=== PATIENT | female | born 1935 | race Caucasian/White ===

== ENCOUNTER 2017-02-27 13:25 | Inpatient (IN) | payer MEDICARE, OTHER ==
[~2017-02-27] VITALS: Ht 154.9 cm; Wt 85.0 kg
[~2017-02-27 13:25] MED LIST: BACTROBAN CREAM15 GM TP; BACTROBAN OINT.22 GM TP; BISACODYL10 MG PR; CIPRO DPS500 MG PO; CLEOCIN HCL300 MG PO; COREG12.5 MG PO; COREG6.25 MG PO; DULCOLAX-DPS5 MG PO; DUONEB DPS3 ML IH; FLEXERIL DPS5 MG PO; HIBICLENS 4% TP; HYDROCODON-ACE1 EAC4 PO; IMDUR DPS30 MG PO; LASIX20 M1 PO; LASIX80 MG PO; MAALOX DPS30 ML PO; MICRO-K DPS10 MEQ PO; MYCOSTATIN PWD15 GM TP; NITROSTAT0.4 MG SL; NORVASC5 MG PO; NYSTATIN CREAM15 GM TP; OXYGEN IH; PRAVACHOL40 MG PO; PRAVACHOL80 MG PO; SENOKOT S1 TAB PO; SURFAK DPS240 MG PO; TAMIFLU30 MG PO; THERAPEUTIC MUL1 TAB PO; TYLENOL DPS325 MG PO; TYLENOL325 MG PO; VIBRAMYCIN-DPS100 M2 PO; XARELTO15 MG PO; XARELTO20 MG PO; ZAROXOLYN5 MG PO; ZYLOPRIM-DPS300 MG PO; [UNRECOGNIZED DRUG - OTHER] PR
--- NOTE | 2017-02-28 08:15 | HP ---
ADMIT: 02/27/2017 RM/LOC: 419 [facility] MR#: [id number] 26[address] [facility] [address] [place], [place] [address] [place]KS [place], [place] [address] History and Physical SEX: F AGE: 81 : 1935 DATE OF SERVICE: CHIEF COMPLAINT: I fell out of my of wheelchair about 06:00 this morning and could not get up-family reports increasing weakness over the last several weeks. HISTORY OF PRESENT ILLNESS: Mrs. Banks is a delightful 81-year-old, woman, who usually follows with Dr. Serrano at [facility]. She was last hospitalized here by Dr. Chatterjee from 10/16 to 10/27/2016 with bilateral lower extremity cellulitis (wound cultures grew Pseudomonas aeruginosa), as well as her chronic illnesses as outlined below. She and her family reported that she had been getting along "reasonably well" in the interim in independent living. Her family is being concerned that she has been getting increasingly weak over the last 3 or 4 weeks, but Maggi denies that. She states that about 06:00 this morning or so she was in her wheelchair and somehow fell out of wheelchair landing hard on her left side. She complains primarily of pain in her left shoulder and left arm-x-rays in the ER showed no fractures. She bruised her left face. She called for help, but "nobody seemed hear me." She apparently does not have a lifeline. Her family checked on her about 1300 hours and found her still down on the floor. EMS was called and she was brought to the emergency room where workup showed an apparently normal head CT (verbal report), and a chest x-ray read as "cardiomegaly and possible left lower lobe infiltrate." Cardiomegaly appears stable from x-rays of 10/26/2016. X-rays of her left hand and left humerus and elbow, showed no apparent fractures. Her laboratory workup was quite benign with an essentially normal CMP. She had a mild elevation of her troponin I at 0.223, but this is a chronic issue for her. Her CBC showed hemoglobin of 10.5 with mildly macrocytic indices, but again this is stable for her, and her white count of 6000. Procalcitonin was less than 0.05, and lactic acid was 1.5 mmol/L. Urinalysis is normal. She is unable to get up and move as she normally does, so she is now admitted for further evaluation and treatment. Note that after her last hospitalization, she was at [facility] for a time. PAST MEDICAL HISTORY: Well documented and a very nice history and physical by Dr. Chatterjee from 10/16/2016, I will reference that plus Mrs. Banks's responses and her family's. 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 Seals at [facility]), hypercholesterolemia, chronic lower extremity stasis with recurrent cellulitis, gout, atrial fibrillation with sick sinus syndrome (status post pacemaker placement), distant history of left lower extremity DVT, coronary artery disease-status post myocardial infarction 2001 with stent to the RCA, previous "small" left- sided stroke with mild right-sided deficit (not really apparent on today's exam), chronic kidney disease, and chronic obesity. PREVIOUS SURGICAL HISTORY: Includes a pacemaker placement for sick sinus syndrome, cholecystectomy, tonsillectomy, adenoidectomy, previous cataract surgery, right total knee replacement, and right carotid endarterectomy. ADMIT: 02/27/2017 RM/LOC: 419 [facility] MR#: [id number] [address] [address] [place] [address] History and Physical SEX: F AGE: 81 : 1935 ALLERGIES: BACTRIM AND CLINDAMYCIN. CURRENT MEDICATIONS: Include: 1. Furosemide 80 mg daily. 2. Carvedilol 12.5 mg b.i.d. 3. Xarelto 15 mg daily. 4. Isordil 30 mg daily. 5. Micro-K 10 mEq daily. 6. One-a-day multivitamin daily. 7. Pravastatin 80 mg at bedtime. SOCIAL HISTORY: Reveals that she is , times a number of years. Her family is very attentive to her. She again resides at [facility] in independent living. She has not been a smoker. She drinks alcohol rarely if at all. 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 FAMILY HISTORY: Noncontributory except that her again her family is very attentive to her. Her daughter, son-in-law, and several of her grand children are with her now. REVIEW OF SYSTEMS: Essentially negative. Otherwise, she denies any recent visual changes. She has not otherwise been ill. Denies any fever, chills, sore throat, ear symptoms, or difficulty swallowing. She denies any obvious chest pain or worsening difficulty breathing. She thinks "my pacemaker has been working well." She denies any recent shortness of breath. She states her bladder and bowel functions have been normal, although she requires the assist, usually one to get on to the toilet. Again, she has had chronic recurrent problems with chronic venous stasis changes of her lower extremities with chronic rubor and occasional "weeping" of the lower extremities-she has not had any recent "weeping," and the erythema has been stable. She has no history for psychiatric issues. Again, her stroke may have been years ago. PHYSICAL EXAMINATION: GENERAL: She is alert, a delightful woman in no apparent distress, seems oriented x3 now (was questionably a little confused as to day on arrival to the emergency room). She has obvious bruising of her left face, left arm, and hand. VITAL SIGNS: Have been showing a pulse of 70, respirations of 16. She is afebrile. Blood pressures in the 140-150 systolic range. O2 sats in the range of 96 on room air. Again, she is alert in no apparent distress. HEENT: Her head is otherwise normocephalic. Pupils seem equal. Mucous membranes are moist. NECK: Reasonably supple. I detect no bruits. Scar on the right neck is well healed. LUNGS: Clear to auscultation. ADMIT: 02/27/2017 RM/LOC: 419 [facility] MR#: [id number] [address] [address] [facility] [place] [address] History and Physical SEX: F AGE: 81 : 1935 CARDIAC: Shows irregular rhythm with pacemaker in the right upper chest. ABDOMEN: Soft. No masses, tenderness, or organomegaly. EXTREMITIES: Lower extremities show chronic brawny edema with several scars and rather dramatic "rubor"-apparently not much worse than usual. NEUROLOGIC: Seems normal within her ability to test. IMPRESSION: 1. Fall with increasing weakness-unable to have self-care. 2. Known coronary artery disease, status post myocardial infarction and PCI with stenting. 3. Chronic atrial fibrillation/sick sinus syndrome-status post pacemaker placement. 4. Chronic anticoagulation with Xarelto. 5. Chronically elevated troponin levels. 6. Chronic "combined" congestive heart failure. 7. History of chronic kidney disease. 8. History of chronic anemia. 9. Systemic hypertension. 10.Status post multiple operations as outlined above. 11.Severe chronic venous stasis of lower extremities. PLAN: She has been admitted. Given a bump in her troponin and her cardiac history, we will seek Cardiology consult tomorrow. Otherwise, we will get Physical Therapy, Occupational Therapy involved. We will get social service involved as I think she will need group home placement prior to hopefully placing in assisted living. Reviewed her labs and imaging with her and her family. I think they are comfortable with this approach. Dwight Correa MD/ alvin JOB #: [id number] CC: Dwight Correa MD, Attending Physician Dwight Correa MD, Family Physician
--- NOTE | 2017-03-04 11:56 | CO ---
ADMIT: 02/27/2017 RM/LOC: 419 [facility] MR#: [id number] [address] [address] [place] [address] Consultation SEX: F AGE: 81 : 1935 DATE OF CONSULTATION: 02/28/2017 ATTENDING PHYSICIAN: Dwight Correa MD CONSULTING PHYSICIAN: Melissa Garcia MD REASON FOR CONSULT: CHF. Jeni Vilchis RN, scribing for Dr. Horace Garcia. HISTORY OF PRESENT ILLNESS: Maggi is a very pleasant 81-year-old female, I have been asked to see in Cardiology consultation by Dr. Dwight Correa. She follows regularly with [facility] and is normally followed by Dr. Rudolph Valadez. She was last seen on February 01 for her history of permanent atrial fibrillation, single chamber permanent pacemaker, and coronary artery disease. She has history of inferior myocardial infarction in 2001 which resulted in a PCI at that time. She also has history of peripheral vascular disease status post right carotid endarterectomy in 2013. Last echocardiogram was in October of this year showing EF of 50% with severe biatrial enlargement, moderate LVH with a heavily calcified aortic valve with stenosis. Maggi's weight in office visit in January was 188 pounds and it was felt at that time she was euvolemic. Maggi presented to [facility] after falling at home and being unable to get up. It sounds like she was on the floor for several hours, up to 6 or 7 hours before being found. She lives in the independent living facility. She states that she did not pass out. She was alert and oriented throughout the entire episode, but her knees were so weak she could not get up from the floor. Her weight on arrival was 207 pounds, about 20 pounds up from office visit a month ago. She denies any orthopnea. She has chronic peripheral edema and venous stasis changes from that. She also states that she has been eating a lot more food than she used to as well. On further discussion, she does acknowledge that she has had some more swelling as of late. Maggi denies any chest pain, shortness of breath, palpitations, presyncope, or orthopnea. Her proBNP was elevated at 18,000. She does have mild elevated troponin of 0.226 on second set which is chronically elevated. PAST MEDICAL HISTORY: Coronary artery disease status post PCI in 2011; last heart catheterization 2009 with medical management; chronic venous stasis of lower extremity; permanent atrial fibrillation, on chronic anticoagulation; single chamber permanent pacemaker; right carotid endarterectomy; history of DVT; former tobacco use; hypertension; hyperlipidemia; cataracts; gallbladder disease; chronic kidney disease; osteoarthritis; gout; stroke. PAST SURGICAL HISTORY: Includes eyelid surgery, cholecystectomy, tonsillectomy, and total knee arthroplasty. ALLERGIES: BACTRIM. ADMIT: 02/27/2017 RM/LOC: 419 [facility] MR#: [id number] [address] [place] [phone] [place] [address] Consultation SEX: F AGE: 81 : 1935 MEDICATIONS: Current medications include: 1. Coreg 12.5 p.o. b.i.d. 2. Imdur 30 p.o. daily. 3. Lasix 80 p.o. daily. 4. Potassium chloride 10 mEq daily. 5. Pravastatin 80 mg p.o. at bedtime. 6. Multivitamin daily. 7. Xarelto 15 mg daily. FAMILY HISTORY: Positive family history of stroke in father who from this at the age of 68. Her mother in a motor vehicle accident at the age of 47. SOCIAL HISTORY: Maggi is . She lives at the [facility]. She drinks 2 cups of coffee a day. She has occasional alcohol use. Denies any special diet or drug use. She quit smoking several years ago. REVIEW OF SYSTEMS: GENERAL: Has generalized fatigue and weakness over an extended period of time. She has had a 20 pound weight gain since her office visit on February 01 of this year. No fever, chills, or sweats. EYES: History of corrective lens use. History of cataracts. Denies glaucoma. THROAT, MOUTH, and EARS: Denies hearing loss or problems with nose, mouth or throat. PULMONARY: Denies cough, sputum production, asthma, emphysema or bronchitis. Denies snoring loudly, wakefulness at night, or fatigue upon awakening. GASTROINTESTINAL: Gallbladder disease, status post cholecystectomy. Denies heartburn or difficulty swallowing. No change in bowel habits. Denies dark or bloody stools. No history of ulcers, hiatal hernia, or liver disease. GENITOURINARY: Chronic kidney disease. Denies dysuria, hematuria, nocturia, urinary tract infection, or kidney stones. Denies history of renal insufficiency or failure. MUSCULOSKELETAL: Osteoarthritis and gout. Generalized muscle and joint weakness. ENDOCRINE: Her thyroid labs are abnormal, but no history of diabetes. HEMATOLOGIC: Denies history of anemia, easy bruising, or cancer. NEUROLOGIC: She had right-sided defects after stroke several years ago which have resolved. No seizures. PSYCHIATRIC: Denies history of mental illness or feelings of depression. PHYSICAL EXAMINATION: VITAL SIGNS: Blood pressure 114/63, heart rate 73, respirations 18, temperature 96.7, and oxygenation 94% on O2 SKIN: [place], warm and dry. EYES: Sclerae clear. No xanthelasmas. ENT: Oral mucosa is pink and moist. No jugular venous distention or carotid bruits. CHEST: Respirations are even and unlabored. Lungs are clear to auscultation. HEART: Regular rate and rhythm. Normal S1, S2. No murmurs, rubs or gallops. ABDOMEN: Soft and nontender. ADMIT: 02/27/2017 RM/LOC: 419 [facility] MR#: [id number] [address] [address] MAGGI BANKS [place], [place] [address] Consultation SEX: F AGE: 81 : 1935 EXTREMITIES: No cyanosis or clubbing. Positive edema with 1 to 2+ pitting chronic venous stasis changes. SKIN: Dependent changes in legs. PSYCHIATRIC: Alert and oriented. Mood and affect are appropriate. DIAGNOSTIC DATA: Chest x-ray on 02/28 showed no evidence of edema. Sodium 142, potassium 3.7, BUN 14, creatinine 0.8, glucose 103, AST 40, ALT 18. Magnesium 18. ProBNP 18,543. White blood cell count 4.9, hemoglobin 9.2, hematocrit 30.1, and platelets 197. Free T4 of 1.99, TSH 0.034. CRP 2.76. INR 1.32. CK was 150, MB 1.5, and troponin 0.226. ASSESSMENT/PLAN: 1. Acute congestive heart failure, diastolic. 2. Fall. 3. Permanent atrial fibrillation. 4. Permanent pacemaker. 5. Coronary artery disease. I recommend diuresing with IV medication to dry weight around 190. I will start Lasix 80 mg IV b.i.d., recheck BMP and magnesium in the morning. Put her on a low sodium diet with 1800 mL fluid restriction. I would like her to wear EdemaWear stockings, bilateral lower extremity. Her last echo was in October, I would consider repeat if she has no response to treatment. Thank you for the consultation. "I have read and agree with the documentation that has been completed regarding this visit. By signing this record, I attest that the documentation was completed in my physical presence and is an accurate record of the encounter." Jeni Vilchis RN / Melissa Garcia MD / alvin JOB #: [id number] CC: Dwight Correa MD, Attending Physician Dwight Correa MD, Family Physician
--- NOTE | 2017-03-04 12:55 | CO ---
ADMIT: 02/27/2017 RM/LOC: 419 [facility] MR#: [id number] [address] [address] [place] [address] Consultation SEX: F AGE: 81 : 1935 DATE OF CONSULTATION: 03/01/2017 ATTENDING PHYSICIAN: Dwight Correa MD CONSULTING PHYSICIAN: Jasmin Velazquez APRN TIME IN: 1000 hours. TIME-OUT: 1040 hours . REASON FOR CONSULTATION: Supportive care consultation was requested by Dr. Escamilla for discussion of goals for care. HISTORY OF PRESENT ILLNESS: Maggi is a very pleasant 81-year-old, female with a history of chronic systolic/diastolic heart failure. She also has a history of recurrent cellulitis over the bilateral lower extremities, history of small CVA in the past, coronary artery disease with prior AR as well as a history of chronic kidney disease. She was last hospitalized here in October of 2016 with Pseudomonas cellulitis. Her last echocardiogram showed an EF of 50% with severe biatrial enlargement with moderate LVH. She also has calcified aortic valve with stenosis. She has been living in an independent Living Center and unfortunately sustained a fall on 02/27 out of her wheelchair. She landed on her left side. She did not have a lifeline, therefore was on the floor for a little while. She was eventually found and brought to the emergency room for evaluation. CT of the head was negative, and x-rays were negative for fracture. At this point, Social Work is working with the patient and family for rehab placement with likely eventual assisted living placement. This will all depend on her functional status in the time ahead. Due to her complexities, supportive care consultation was requested to discuss goals for care. In terms of advanced directives, the patient states that she does have a living will. She also states that she has completed health care power-of- knit goods press hand paperwork. She cannot recall if it is her son, Jass Banks, or her daughters who are her healthcare power of knit goods press hand's. She feels like in the beginning her son with her healthcare [id number], however she thinks that this may change to her daughters. In terms of contact information, we have the patient's daughter, Nolan Calixto, whose phone# [phone] and listed as next of kin, and also the patient's daughter, Rebecca Arshad, whose phone# [phone] listed as a person to notify as well. The patient is a do not resuscitate/do not intubate status. Symptomatically, the patient states that overall, she is fairly comfortable. She denies shortness of breath or other discomfort. She does relate that she will occasionally have discomfort over the left side of her chest which is what she presented with in the beginning to the emergency room. Overall, she does appear slightly weak and debilitated. PAST MEDICAL HISTORY: ADMIT: 02/27/2017 RM/LOC: 419 [facility] MR#: [id number] [address] [place] [address] [place] [address] Consultation SEX: F AGE: 81 : 1935 1. Systolic/diastolic congestive heart failure. 2. Hypercholesterolemia. 3. Chronic lower extremity venous stasis with recurrent cellulitis. 4. Gout. 5. Atrial fibrillation with sick sinus syndrome, status post pacemaker placement. 6. History of the left lower extremity DVT. 7. Coronary artery disease, status post myocardial infarction with stent to the RCA. 8. Prior small left-sided stroke with mild right-sided deficit. 9. Chronic kidney disease. 10.Obesity. ALLERGIES: THE PATIENT IS ALLERGIC TO ALLOPURINOL. CURRENT MEDICATIONS: Please see the patient's MAR for specific routes and dosages. Her current medications are as follows. 1. Mycostatin powder. 2. Pravachol. 3. Lasix. 4. Multivitamin. 5. Potassium chloride. 6. Imdur. 7. Coreg. 8. Xarelto. 9. Morphine. 10.New Hope. 11.Maalox. 12.Tylenol. 13.Colace. 14.Nitrostat. 15.Magnesium oxide. SOCIAL HISTORY: The patient was living at independent living. She does not use tobacco, and rarely uses alcohol. She is retired. She has adult children. FAMILY HISTORY: Reviewed and noncontributory. FUNCTIONAL REVIEW: Prior to her hospital stay, she was living at independent living. She states she did spend most of the time in her wheelchair just to get around, but that she could perform her own ADLs and even cook meals. Her palliative performance scale prior to admission was around 60%. Currently, she is mostly sitting. She is requiring considerable assistance. Her current palliative performance score is a 50%. REVIEW OF SYSTEMS: A 10-point review of systems was completed and other than those pertinent positives and negatives mentioned the HPI, it is negative. ADMIT: 02/27/2017 RM/LOC: 419 [facility] MR#: [id number] [address] [place] [id number] [place] [address] Consultation SEX: F AGE: 81 : 1935 PHYSICAL EXAMINATION: GENERAL: The patient is examined in the chair. She is in no acute distress. VITAL SIGNS: Temperature 98.3, pulse 70, respirations 22, blood pressure 97/46, oxygen 91% on 2 L per nasal cannula. HEENT: Head is normocephalic. Pupils are 3 mm and brisk. Oral mucosa pink and moist with fair dentition. NECK: Supple. RESPIRATORY: Respirations are equal and nonlabored at rest. LUNGS: Diminished in the bases bilaterally. CARDIOVASCULAR: Rate and rhythm regular without murmurs, rubs, or gallops. 1 to 2+ edema over the bilateral lower extremities. GASTROINTESTINAL: Soft, nontender. Bowel sounds are positive. MUSCULOSKELETAL: Generalized weakness. She is a little sore over the left side of her body from her fall. INTEGUMENTARY: Skin turgor is fair. I did not perform an extensive examination of the skin as she was sitting in the chair. NEUROLOGIC: Alert and oriented x3. She is a little forgetful at times. She will follow commands. PSYCHIATRIC: Calm and cooperative. No agitation noted. DIAGNOSTIC DATA: Sodium 140, potassium 4.2, BUN 17, creatinine 0.7, total protein 7.6, albumin 2.8. WBC 4.9, hemoglobin 9.2, hematocrit 30.1, and platelets are 197. IMPRESSION: 1. Physical debility with recent fall. 2. Fatigue. 3. Malaise. 4. Acute diastolic heart failure. 5. Coronary artery disease. 6. History of recurrent cellulitis. 7. Chronic kidney disease. 8. History of cerebrovascular accident. 9. Palliative care. 10.The patient is a DNR/DNI. PLAN OF TREATMENT: 1. I was able to meet with the patient at the bedside. We reviewed her overall status and goals for the time ahead. She states that her goal at this time is to get some strength back and is perfectly fine with going to rehab in an attempt to get some strength back. She states that she will likely need at least assisted living in the time ahead after rehab. In terms of how aggressive she would like to be in the time ahead, she states "I am 81 years old." She is not sure how aggressive she wants to be in the time ahead in the event of a decline. At this time, she agrees to ongoing discussions with us regarding this. Pending her goals we can certainly assist with a POLST form completion. ADMIT: 02/27/2017 RM/LOC: 419 [facility] MR#: [id number] [address] [address] [place] [address] Consultation SEX: F AGE: 81 : 1935 2. We did review code status including the burden versus benefit of full code status versus a do not resuscitate/do not intubate status. The patient reports that she wants to be a DNR/DNI, and relates that if it is her time to "go" that she would like to go naturally without any interventions to try to maintain life. The DNR/DNI order is present on the chart. 3. In terms of advanced directives, I did ask the patient to have the family bring in her living will and healthcare [id number] paperwork that we can have this on file. I do not see that we have a copy of this currently. 4. We will continue to follow along in the care of this patient and assist with goals pending her status. We would like to thank Dr. Escamilla for the invitation to participate in this patient's care. Total consultation time was 40 minutes from 1000 hours 1040 hours with 25 minutes from 1005 hours to 1030 hours spent [id number] with the patient discussing goals for care and providing counseling and support. Jasmin Velazquez APRN/ alvin JOB #: [id number] CC: Dwight Correa MD, Attending Physician Dwight Correa MD, Family Physician
[2017-03-10] MEDS ORDERED: ALDACTONE DPS25 MG PO (14:26)
[2017-03-10] MEDS ORDERED: TYLENOL EXTRA500 M1 PO (14:32)
[2017-03-10] MEDS ORDERED: COLACE-DPS100 MG PO (14:32)
[2017-03-10] MEDS ORDERED: SENOKOT S1 TAB PO (14:32)
--- NOTE | 2017-03-18 10:58 | CO ---
ADMIT: 02/27/2017 RM/LOC: [facility] MR#: [id number] [address] [address] [place] [address] Consultation SEX: F AGE: 81 : 1935 DATE OF CONSULTATION: 03/02/2017 ATTENDING PHYSICIAN: Dwight Correa MD CONSULTING PHYSICIAN: Lelo Grant MD REASON FOR CONSULTATION: Macrocytic anemia of unexplained etiology. HISTORY OF PRESENT ILLNESS: Mrs. Banks is an 81-year-old, pleasant woman, who was admitted to the hospital because of the multiple fall and weakness. On further workup, she was found to have anemia with a hemoglobin count of 9.3 and her MCV was 116. Therefore, Hematology was consulted for further evaluation. On further checking, she also was leukopenic. Her WBC count was 3.8 with a hemoglobin count of 9.3, MCV 116, RDW 15.8, MCH 34.7, MCHC 29.9. No nausea. No vomiting or diarrhea. As per the patient, she falls most of the times. She is very weak and unable to walk. No pain, no fever, no bleeding. PAST MEDICAL HISTORY: She has multiple medical problems. She had high blood pressure, hypercholesterolemia, congestive heart failure, atrial fibrillation, status post pacemaker, and distant history of lower extremity DVT, on Xarelto. ALLERGIES: SHE IS ALLERGIC TO BACTRIM AND CLINDAMYCIN. CURRENT MEDICATIONS: She is on: 1. Furosemide. 2. Carvedilol. 3. Xarelto. 4. Pravastatin. Please follow the medication list for complete. SOCIAL HISTORY: Currently, she is not a smoker or a drinker. FAMILY HISTORY: Family history of heart disease in the family and diabetes. REVIEW OF SYSTEMS: GENERAL: Not in acute distress. CARDIOVASCULAR: No chest pain. RESPIRATORY: No shortness of breath. GASTROINTESTINAL: No nausea, no vomiting, no diarrhea. GENITOURINARY: No urgency. No frequency. ENDOCRINOLOGY: No polyuria. No polydipsia. MUSCULOSKELETAL: No pain, infection, or fever. Nutrition is adequate. NEUROLOGIC: No confusion. Awake alert, and oriented. PHYSICAL EXAMINATION: VITAL SIGNS: Her temperature is 96.2, pulse is 70, respirations 16, blood pressure 123/90. HEENT: Normocephalic and atraumatic. LUNGS: Clear. HEART: S1, S2 heard. Regular rate and rhythm. ADMIT: 02/27/2017 RM/LOC: [facility] MR#: [id number] [address] [address] [facility] [place] [address] Consultation SEX: F AGE: 81 : 1935 ABDOMEN: Soft, nontender, and nondistended. Positive bowel sounds. EXTREMITIES: No edema. NEUROLOGICAL: Alert, awake, and oriented x3. LYMPHATICS: No abnormal lymph nodes palpated. SKIN: No rash. LABORATORY DATA: WBC is 3.8, hemoglobin 9.3, MCV 116, platelets 194. Creatinine 0.9 with normal LFTs. IMPRESSION RECOMMENDATIONS: Mrs. Banks is an 81-year-old pleasant woman with a history of weakness and fall, who was admitted to the hospital due to severe weakness and fall and found to have anemia of 9.3 with an increased MCV. 1. Macrocytic anemia. Because of her old age, we need to make sure she does not have MDS. We also need to make sure there is no multiple myeloma. It could be multifactorial, but as per the patient, she has this anemia for a long, long time, but she was not down to 9, she had above 10 g of hemoglobin before. I will do all the anemia workup, nutritional workup. I will check her methylmalonic acid level. I will also check quantitative immunoglobulins as well as serum immunoglobulin electrophoresis. I will also check her free light chain ratio and levels. I will check her LDH/haptoglobin level, hemolytic workup as well as direct Bettye test. Once I get all the results, then I will decide if she will need bone marrow aspiration biopsy or not. Looking at her, she probably will need bone marrow aspiration biopsy. I will talk to the patient. When I talked to her, she sounds like she does not want to do much because of her age, but I will talk to her and see what she thinks once I get all the results back. Thank you for your consultation and the opportunity in taking care of the patient. I will follow the patient with you. Lelo Grant MD/ alvin JOB #: [id number] CC: Dwight Correa MD, Attending Physician Dwight Correa MD, Family Physician
--- NOTE | 2017-03-21 21:43 | DS ---
ADMIT: 02/27/2017 RM/LOC: [facility] MR#: [id number] [address] [address] [place] [address] General Discharge Summary SEX: F AGE: 81 : 1935 ADMISSION DATE: 02/27/2017 DISCHARGE DATE: 03/09/2017 FINAL DIAGNOSES: 1. Worsening weakness with falls - unable to have self-care secondary to several of the below. 2. Acute diastolic congestive heart failure. 3. Microcytic anemia. 4. Permanent atrial fibrillation. 5. Coronary artery disease. 6. Permanent pacemaker. 7. Chronic anticoagulation with Xarelto. 8. Chronically elevated troponin levels. 9. History of chronic kidney disease. 10.Systemic hypertension. 11.Severe chronic venous stasis of lower extremities with history of cellulitis. 12.Status post multiple operations. BRIEF HISTORY: This very nice 81-year-old woman is usually followed by Dr. Serrano at [facility]. She was last hospitalized in early October 2016 with bilateral lower extremity cellulitis. She and her family reported that she had been getting along "reasonably well" in the interim in independent living. However, her family was concerned that over the last 3 or 4 weeks, she became increasingly weak although Maggi denied that. At about 0600 hours in the morning of admission, she was in her wheelchair and somehow fell out of wheelchair landing hard on her left side. She bruised her left face and complained primarily of pain in her left shoulder and left arm. She called for help - did not have a lifeline - but no one heard her. At about 1300 hours, her family stopped by and found her still down on the floor. EMS was called and she was brought to the emergency room where after evaluation, it was felt best to admit her for further evaluation and treatment. SIGNIFICANT LAB AND X-RAY: On admission CBC showed a hemoglobin of 10.5 with macrocytic indices, white count of 6000, platelets of 222,000. Serial CBCs were followed and hemoglobin stabilized in the range of 9.2-9.8 during the rest of her hospitalization. By 03/08 her hemoglobin was 9.2, still with macrocytic indices. White count of 5200. On admission, INR was 1.32 with a PTT of 28.5 seconds. Admitting urinalysis was within normal limits. On 02/27, CMP showed a glucose of 141 mg/dL, calcium of 8.4 mg/dL, albumin of 2.8 g/dL, alkaline phosphatase of 170 U/L and was otherwise within normal limits. Her magnesium was 1.8 mg/dL. Procalcitonin was less than 0.05 mg/dL. Serial chemistries were followed. On 02/28, her proBNP was 18,543 pg/mL. On 03/02 serum iron was 36 ug/dL (normal 37-170). By 03/09 her BMP was ADMIT: 02/27/2017 RM/LOC: [facility] MR#: [id number] [address] [address] [place] [address] General Discharge Summary SEX: F AGE: 81 : 1935 essentially normal but for a calcium of 8.3 mg/dL. On 02/28 vitamin B12 level was 903 pg/mL, with a folate of 19.0 ng/mL, ferritin of 99 ng/mL, haptoglobin of 156 mg/dL (normal 30-200), IgG of 2150 mg/dL (normal 700-1600), IgA of 520 mg/dL (normal 70-400) and IgM of 29.1 mg/dL (normal 40-230). On 02/28, free T4 was 1.99 ng/dL (normal 0.70-1.40) with TSH was 0.034 UIU/L (normal 0.400-3.800). On 02/28 her C-reactive protein was 2.76 mg/dL (normal less than 0.30). On 03/02, serum protein electrophoresis was within normal limits but for a GG of 2.1 g/dL (normal 0.5-1.3) and a total globulin of 4.1 g/dL (normal 2.0-4.0) with the interpretation being "hypoalbuminemia and polyclonal hypergammaglobulinemia. No monoclonal proteins identified." On 03/05, thyroglobulin autoantibody was less than 0.9 IU/L (normal less than 4.0), with a thyroid peroxidase autoantibody of 0.3 IU/mL (normal less than 9.0), a thyroglobulin autoantibody of less than 0.9 IU/mL (normal less than 4.0), and a thyroglobulin of 180.3 ng/mL (normal 1.2-3.5). On 03/05, electrophoresis showed a kappa FLC at 18.0 mg/dL (normal less than 1.94) with a lambda FLC of 4.65 mg/dL (normal less than 2.63), and kappa lambda FLC ratio of 3.87 (normal 0.26-1.65). Blood cultures obtained on admission x2, had no growth after 5 days incubation. Urine culture obtained on admission had no growth. The patient's blood type is O, Rh positive with a negative antibody screen. On 02/27, CT scan of the brain without contrast was read as "chronic white matter changes similar to previous exam." On 03/08, nuclear medicine thyroid imaging with uptake and scan was read as "impression: Slightly diminished 24 hour uptake, normal 4 hour uptake. Uniform uptake throughout the gland without a hot or cold nodule." X-rays of her left humerus on 02/27/2017, showed no fractures. X-rays of her left hand showed "changes of osteoarthritis." On 02/27, chest x-ray was read as "cardiomegaly and possible left lower lobe infiltrate." Serial chest x-rays were followed and by 03/05 was read as "impression: 1. Left-sided pacemaker. 2. Cardiomegaly with improving interstitial edema. ADMIT: 02/27/2017 RM/LOC: [facility] MR#: [id number] [facility] [address] [address] [place] [address] General Discharge Summary SEX: F AGE: 81 : 1935 3. There do appear to be residual bilateral pleural effusions with bibasilar atelectatic/inflammatory change.". In the emergency room, x-rays of her left elbow, left shoulder, and left wrist showed degenerative changes but no acute bony injuries. On 02/27 EKG showed "AV sequential pacemaker. No further analysis." HOSPITAL COURSE: The patient was admitted through the emergency room and the imaging and laboratory studies outlined above were begun. She was placed on ER sepsis protocol and routine telemetry orders. Incentive spirometry was started q.2 hours while awake. Cardiology consult was requested the following morning, and Wound nurse consult was requested for her chronic venous stasis changes. By 02/28 she was afebrile. Vital signs were stable with a paced rhythm. Troponin remained slightly elevated, which was chronic. She was alert and only complaint was her left arm pain. She was maintained on her "do not resuscitate/do not intubate status" per her request. She was maintained on her usual Xarelto. She was seen by Physical Therapy and Occupational Therapy. She was seen by Social Service and consult was held with her family. Following Cardiology evaluation on 02/28, Lasix 80 mg IV b.i.d. was initiated with a low-sodium diet and then an 1800 mL fluid restriction and EdemaWear stockings were applied. By 03/01 she had some shortness of breath, but remained afebrile. She had slight expiratory wheeze and 2 to 3+ pitting edema of her lower extremities. She had some intertrigo, so nystatin powder was ordered. Supportive care consult was requested and EzPAP had been ordered that was given q.4 hours while awake. Magnesium levels were adjusted. Over the next several days, she slowly improved. On 03/02, Hematology/Oncology was requested for macrocytic anemia with her congestive failure. Adjustments were made in her potassium dose. On 03/02, Zaroxolyn 5 mg p.o. x1 was given. Following Oncology evaluation, the protein studies were ordered. On 03/03, IV Lasix was discontinued. She was placed on Lasix orally. Supportive Care continued to follow as did Speech Therapy, Occupational Therapy, and Physical Therapy. She was seen by the dietitian. Again over the next several days, she slowly continued to improve and diuresed. On 03/05, she was having some difficulty voiding, so Dodson was placed for short time. Social Service got a bed available for her at [facility]. By 03/06, Aldactone 25 mg p.o. daily was initiated by the educator senior clinical. Liquid potassium was substituted for her replacement. She was placed on Lasix 80 mg p.o. daily. ADMIT: 02/27/2017 RM/LOC: [facility] MR#: [id number] [address] [place] [address] [place] [address] General Discharge Summary SEX: F AGE: 81 : 1935 By 03/08, she was "feeling better." It was felt safe and to transfer her to the longterm unit. She will be allowed low-sodium diet as tolerated with the 1800 mL fluid restriction. Physical Therapy and Occupational Therapy will continue. Arrangements were made for her to be seen by Dr. Serrano in his office in 1 week with a CBC and BMP and appropriate records were faxed to him. Arrangements were made for to be seen at [facility] in 1 week and with the oncologist per their wishes. All of these arrangements could not be made on 03/08, so she was eventually transferred on 03/09 with those orders. On transfer her medications included: 1. Aldactone 25 mg daily. 2. Coreg 12.5 mg b.i.d. 3. Imdur 30 mg daily. 4. KCl 10 mEq capsules 4 b.i.d. 5. Lasix 60 mg p.o. b.i.d. 6. Pravachol 80 mg at bedtime. 7. Senokot-S 1 tab b.i.d. 8. Multivitamin one daily. 9. Tylenol Extra Strength 1000 mg t.i.d. 10.Xarelto 15 mg daily. 11.Mycostatin powder to skin folds q.i.d. and p.r.n. orders for Colace, hydrocodone 5, Maalox, and Nitrostat. She will be dismissed on 2 L of oxygen continuously per nasal cannula. CONDITION ON TRANSFER: Stable on above treatment. FINAL DISPOSITION: As noted. PROGNOSIS: Guarded. Dwight Correa MD/ alvin JOB #: [id number] CC: Dwight Correa MD, Attending Physician Dwight Correa MD, Family Physician
--- NOTE | 2017-04-03 15:32 | ER ---
ADMIT: 02/27/2017 RM/LOC: [facility] MR#: [id number] [id number] [place], [place] [address] [place] [address] Emergency Room Report SEX: F AGE: 81 : 1935 DATE: 02/27/2017 This 81-year-old female who was found down in her home and apparently was last seen by a son at 7:30 last night, and probably granddaughter approximately 1:30 this afternoon. The patient stated she fell out of her chair while sitting and did not strike her head but was unable to get herself back up. PAST MEDICAL HISTORY: Significant for similar episodes, atrial fib and congestive heart failure, and hypertension. She is complaining of generalized weakness. PHYSICAL EXAMINATION: GENERAL: Reveals an elderly, 81-year-old, obese female with edema of left side of face, which she states is chronic. NEURO: She is mildly obtunded, but easily arousable. She is disoriented to time and person and slow to respond. No focal findings. Cranial nerves II through XII are grossly intact. Cerebellar, she would not cooperate with motor. Generalized weakness. CARDIOVASCULAR: Regular rate and rhythm with no murmurs. ABDOMEN: Obese, soft, nontender, positive bowel sounds. No masses, guarding, or rebound. EXTREMITIES: She is tender in the left hand and left humerus. EMERGENCY ROOM COURSE: Subsequent workup was initiated, results of which were hemoglobin 10.5, glucose 141. X-ray of the left humerus was negative. X-ray of the left hand was negative. EKG is paced. Chest x-ray shows no acute findings. Her INR is 1.32. Her troponin is mildly elevated at 0.223. The patient is being admitted with weakness, falls, and elevated troponin. Marshall Arredondo MD/ alvin CALVERT: 02/27/2017 15:31:40 JOB #: [id number] CC: Dwight Correa MD, Attending Physician Dwight Correa MD, Family Physician
== END 2017-03-09 11:27 | DRG 291 ==
LOC: ER 13:25 → 4PCU 15:30
PROVIDERS: ADMIT Family Medicine
DX: I13.0 Hypertensive heart and chronic kidney disease with heart failure and stage 1 through stage 4 chronic kidney disease, or unspecified chronic kidney disease (principal); I50.33 Acute on chronic diastolic (congestive) heart failure; I48.2 Chronic atrial fibrillation; D53.9 Nutritional anemia, unspecified; E83.42 Hypomagnesemia; I50.42 Chronic combined systolic (congestive) and diastolic (congestive) heart failure; M79.602 Pain in left arm; I51.7 Cardiomegaly; I35.0 Nonrheumatic aortic (valve) stenosis; R53.1 Weakness; E66.9 Obesity, unspecified; E78.00 Pure hypercholesterolemia, unspecified; R79.89 Other specified abnormal findings of blood chemistry; E87.6 Hypokalemia; E05.90 Thyrotoxicosis, unspecified without thyrotoxic crisis or storm; I25.10 Atherosclerotic heart disease of native coronary artery without angina pectoris; I87.8 Other specified disorders of veins; N18.9 Chronic kidney disease, unspecified; Z86.718 Personal history of other venous thrombosis and embolism; Z91.81 History of falling; Z86.73 Personal history of transient ischemic attack (TIA), and cerebral infarction without residual deficits; Z96.651 Presence of right artificial knee joint; Z95.0 Presence of cardiac pacemaker; I25.2 Old myocardial infarction; Z95.5 Presence of coronary angioplasty implant and graft; Z79.01 Long term (current) use of anticoagulants; Z87.891 Personal history of nicotine dependence; Z66 Do not resuscitate